=== PATIENT | female | born 1990 | race Caucasian/White ===

== ENCOUNTER → 2019-02-23 | Outpatient (CLI) | payer BC ==
[2019-02-23 10:58] LABS: Basophils % (A) 1 %; Eosinophils # (A) 0.2 k/uL (0-0.7); Eosinophils % (A) 3 %; HCT 38.8 % (34.0-46.0); HGB 12.8 gm/dL (11.4-16.0); Lymphocytes # (A) 1.9 k/uL (1.0-4.8); Lymphocytes % (A) 34 %; MCH 31.4 pg (25.0-35.0); MCHC 32.9 g/dL (31.0-37.0); MCV 95.3 fL (80.0-100.0); Mean Platelet Volume 7.8; Monocytes # (A) 0.2 k/uL (0-1.0); Monocytes % (A) 4 %; Neutrophils # (A) 3.2 k/uL (1.3-7.7); Neutrophils % (A) 56 %; Platelet Count 252 k/uL (150-450); RBC 4.07 m/uL (3.80-5.40); RDW 12.3 % (11.5-15.5); WBC 5.6 k/uL (3.8-10.6)
[2019-02-23 17:08] LABS: Iron Saturation 25.56 (12.00-45.00)
[2019-02-23 17:21] LABS: Folate, Serum 12.2 ng/mL
[2019-02-23 18:03] LABS: Gliadin AB IgA, Deaminated NEGATIVE (NEGATIVE); Gliadin AB IgA, Unit <0.2 U/mL; Gliadin AB IgG, Deaminated NEGATIVE (NEGATIVE)
[2019-02-23 18:14] LABS: Hemoglobin A1C 4.7 % (4.0-6.0)
[2019-02-27 09:17] LABS: Lyme IgG/IgM 0.13 Index
== END | disposition home or self-care (01) ==
LOC: LABWHC1 10:31
PROVIDERS: ATTEND Internal Medicine Geriatric Medicine
DX: R73.9 Hyperglycemia, unspecified (principal); E61.1 Iron deficiency; K90.1 Tropical sprue; R53.82 Chronic fatigue, unspecified
CPT/HCPCS: 36415; 82607; 82746; 83036; 83516; 83540; 83550; 83970; 84681; 85025; 86618